=== PATIENT | male | born 1950 | race Caucasian/White ===

== ENCOUNTER 2019-01-04 11:05 | Day surgery (SDC) | payer MEDICARE ==
[~2019-01-04] VITALS: Ht 172.7 cm; Wt 80.2 kg
[2019-01-04 11:55] VITALS: BP 130/84
== END 2019-01-04 14:35 | disposition home or self-care (01) ==
LOC: OUT 11:05
PROVIDERS: ATTEND Surgery
DX: Z45.2 Encounter for adjustment and management of vascular access device (principal); C20 Malignant neoplasm of rectum; I10 Essential (primary) hypertension
CPT/HCPCS: 36415; 36561; 77001; 80053; 93005; C1788; J0690; J1100; J1644; J1885; J2250; J2405; J2704; J3010; J7120

== ENCOUNTER → 2019-07-20 | Outpatient (CLI) | payer MEDICARE ==
[~2019-07-20] MED LIST: LISI40TA PO; OMNIPAQUE 350 MG/ML, 100ML BOTTLE ONE
== END | disposition home or self-care (01) ==
LOC: CFH 10:47
PROVIDERS: ATTEND Specialist
DX: K43.5 Parastomal hernia without obstruction or gangrene (principal); R91.1 Solitary pulmonary nodule
CPT/HCPCS: 71260; 74177; 82565; Q9967

== ENCOUNTER → 2019-09-26 | Outpatient (CLI) | payer MEDICARE ==
[~2019-09-26] MED LIST changes: -OMNIPAQUE 350 MG/ML, 100ML BOTTLE ONE
== END | disposition home or self-care (01) ==
LOC: RAD 12:34
PROVIDERS: ATTEND Surgery
DX: Z93.2 Ileostomy status (principal)
CPT/HCPCS: 74270

== ENCOUNTER → 2019-12-11 | Outpatient (CLI) | payer MEDICARE ==
[2019-12-11 16:15] LABS: BASOPHILS # (AUTO) 0.04 x10^3/uL (0-0.1); BASOPHILS % (AUTO) 1 % (0-1); EOSINOPHILS # (AUTO) 0.44 x10^3/uL (0-0.4); EOSINOPHILS % (AUTO) 9 % (1-7); LYMPHOCYTES # (AUTO) 0.97 x10^3/uL (1-3.4); LYMPHOCYTES % (AUTO) 20 % (22-44); MD NO; MEAN CORPUSCULAR HEMOGLOBIN 29.6 pg (27.5-34.5); MEAN CORPUSCULAR HGB CONC 33.1 g/dL (33.2-36.2); MEAN CORPUSCULAR VOLUME 89.3 fL (81-97); MEAN PLATELET VOLUME 7.4 fL (7.4-10.4); MONOCYTES # (AUTO) 0.49 x10^3/uL (0.2-0.8); MONOCYTES % (AUTO) 10 % (2-9); NEUTROPHILS # (AUTO) 3.01 x10^3/uL (1.8-6.8); NEUTROPHILS % (AUTO) 61 % (42-75); PLATELET COUNT 226 x10^3/uL (130-400); RED BLOOD COUNT 4.99 x10^6/uL (4.38-5.82); RED CELL DISTRIBUTION WIDTH 14.4 % (9.4-14.8)
[2019-12-11 16:21] LABS: ALANINE AMINOTRANSFERASE 28 U/L (12-78); ALBUMIN 3.9 g/dL (3.4-5.0); ANION GAP 5 mmol/L (5-15); CALCIUM 8.8 mg/dL (8.5-10.1); CHLORIDE 108 mmol/L (98-107); CREATININE 1.59 mg/dL (0.7-1.3)
[2019-12-11 16:23] LABS: ALKALINE PHOSPHATASE 60 U/L (45-117); BILIRUBIN,TOTAL 0.4 mg/dL (0.2-1.0); TOTAL PROTEIN 7.2 g/dL (6.4-8.2)
== END | disposition home or self-care (01) ==
LOC: STAR 16:36
PROVIDERS: ATTEND Surgery
DX: Z01.818 Encounter for other preprocedural examination (principal)
CPT/HCPCS: 36415; 80053; 85025; 93005

== ENCOUNTER → 2019-12-15 | Outpatient (CLI) | payer MEDICARE | END | disposition home or self-care (01) | LOC: STAR 08:00 | PROVIDERS: ATTEND Surgery | DX: Z01.818 Encounter for other preprocedural examination (principal); Z11.59 Encounter for screening for other viral diseases | CPT/HCPCS: 36415; 87635 ==

== ENCOUNTER 2019-12-20 12:17 | Inpatient (IN) | payer MEDICARE ==
[~2019-12-20] VITALS: Ht 172.7 cm; Wt 85.0 kg
[2019-12-20] MEDS ORDERED: MIDAZOLAM 1 MG/ML, 2ML ONE ×2 (12:44→13:24)
[2019-12-20] MEDS ORDERED: FENTANYL PF 100 MCG/2ML ONE ×3 (12:44→15:32)
[2019-12-20] MEDS ORDERED: LACTATED RINGERS 1,000 ML IV SCH (12:56)
[2019-12-20] MEDS ORDERED: CHLORHEXIDINE 15 ML UDC MM ONE (13:00)
[2019-12-20] MEDS ORDERED: FENTANYL PF 250 MCG/5ML ONE (13:24)
[2019-12-20] MEDS ORDERED: DEXAMETHASONE 4 MG/ML, 5ML ONE (13:40)
[2019-12-20] MEDS ORDERED: NEOSTIGMINE 1 MG/ML, 10ML ONE (13:40)
[2019-12-20] MEDS ORDERED: GLYCOPYRROLATE 0.2MG/1ML, 5ML ONE (13:40)
[2019-12-20] MEDS ORDERED: ONDANSETRON 2MG/ML, 2ML ONE (13:40)
[2019-12-20] MEDS ORDERED: CEFOTETAN 2 GM ONE (13:40)
[2019-12-20] MEDS ORDERED: PROPOFOL 10 MG/ML, 20ML ONE (13:40)
[2019-12-20] MEDS ORDERED: ROCURONIUM 10 MG/ML,10ML ONE (13:40)
[2019-12-20] MEDS ORDERED: ONDANSETRON 2MG/ML, 2ML IVPush PRN (14:00)
[2019-12-20] MEDS ORDERED: hydrALAzine 20 MG/ML, 1ML IV PRN (14:00)
[2019-12-20] MEDS ORDERED: LABETALOL 5MG/ML, 20ML IV PRN (14:00)
[2019-12-20] MEDS ORDERED: MEPERIDINE/PF 25MG/0.5ML IVPush PRN (14:00)
[2019-12-20] MEDS ORDERED: HYDROmorphone 1 MG/ML, 1ML INJ IVPush PRN (14:00)
[2019-12-20] MEDS ORDERED: DIAZEPAM 5 MG/ML, 2ML IVPush PRN (14:00)
[2019-12-20] MEDS ORDERED: PROMETHAZINE 25 MG/ML, 1ML IVPush PRN (14:00)
[2019-12-20] MEDS: FENTANYL PF 100 MCG/2ML IV PRN ×4 (15:05→15:40)
[2019-12-20] MEDS ORDERED: OXYcodone 5 MG/5 ML ORAL.SOL UDC ONE ×2 (15:23→15:41)
[2019-12-20] MEDS: OXYcodone 5 MG/5 ML ORAL.SOL UDC PO PRN ×2 (15:24→15:42)
[2019-12-20] MEDS: ACETAMINOPHEN 500 MG TABLET PO SCH ×2 (17:12→23:14)
[2019-12-20] MEDS: D5%-0.45NACL+KCL 20MEQ 1,000 ML IV SCH (18:25)
[2019-12-20 19:01] VITALS: BP 112/74
[2019-12-20] MEDS: OXYcodone IR 5MG TABLET PO PRN (21:00)
[2019-12-20 23:06] VITALS: BP 115/73
[2019-12-21 03:25] VITALS: BP 124/69
[2019-12-21 03:37] LABS: BASOPHILS # (AUTO) 0.02 x10^3/uL (0-0.1); BASOPHILS % (AUTO) 0 % (0-1); EOSINOPHILS % (AUTO) 0 % (1-7); LYMPHOCYTES # (AUTO) 0.38 x10^3/uL (1-3.4); LYMPHOCYTES % (AUTO) 4 % (22-44); MD NO; MEAN CORPUSCULAR HEMOGLOBIN 29.5 pg (27.5-34.5); MEAN CORPUSCULAR HGB CONC 33.3 g/dL (33.2-36.2); MEAN PLATELET VOLUME 7.4 fL (7.4-10.4); MONOCYTES # (AUTO) 0.32 x10^3/uL (0.2-0.8); MONOCYTES % (AUTO) 3 % (2-9); NEUTROPHILS # (AUTO) 9.22 x10^3/uL (1.8-6.8); NEUTROPHILS % (AUTO) 93 % (42-75); PLATELET COUNT 204 x10^3/uL (130-400); RED BLOOD COUNT 4.96 x10^6/uL (4.38-5.82); RED CELL DISTRIBUTION WIDTH 13.9 % (9.4-14.8)
[2019-12-21 03:47] LABS: ANION GAP 6 mmol/L (5-15); CALCIUM 8.8 mg/dL (8.5-10.1); CHLORIDE 108 mmol/L (98-107)
[2019-12-21] MEDS: ACETAMINOPHEN 500 MG TABLET PO SCH ×4 (05:15→21:42)
[2019-12-21 06:25] VITALS: BP 128/76
[2019-12-21] MEDS: D5%-0.45NACL+KCL 20MEQ 1,000 ML IV SCH ×2 (06:36→20:43)
[2019-12-21] MEDS: ENOXAPARIN 40 MG/0.4 ML SQ SCH (11:44)
[2019-12-21 13:30] VITALS: BP 124/74
[2019-12-21 18:58] VITALS: BP 123/72
[2019-12-22 01:58] VITALS: BP 110/70
[2019-12-22 04:14] LABS: BASOPHILS # (AUTO) 0.02 x10^3/uL (0-0.1); BASOPHILS % (AUTO) 0 % (0-1); EOSINOPHILS % (AUTO) 1 % (1-7); LYMPHOCYTES # (AUTO) 0.62 x10^3/uL (1-3.4); LYMPHOCYTES % (AUTO) 6 % (22-44); MD NO; MEAN CORPUSCULAR HEMOGLOBIN 29.1 pg (27.5-34.5); MEAN CORPUSCULAR HGB CONC 32.4 g/dL (33.2-36.2); MEAN PLATELET VOLUME 7.8 fL (7.4-10.4); MONOCYTES # (AUTO) 0.59 x10^3/uL (0.2-0.8); MONOCYTES % (AUTO) 6 % (2-9); NEUTROPHILS % (AUTO) 87 % (42-75); PLATELET COUNT 203 x10^3/uL (130-400); RED BLOOD COUNT 4.66 x10^6/uL (4.38-5.82); RED CELL DISTRIBUTION WIDTH 14.4 % (9.4-14.8)
[2019-12-22 04:24] LABS: ANION GAP 5 mmol/L (5-15); CALCIUM 8.8 mg/dL (8.5-10.1); CHLORIDE 108 mmol/L (98-107); CREATININE 1.52 mg/dL (0.7-1.3)
[2019-12-22] MEDS: ACETAMINOPHEN 500 MG TABLET PO SCH ×2 (05:16→11:06)
[2019-12-22 06:59] VITALS: BP 161/79
[2019-12-22] MEDS: D5%-0.45NACL+KCL 20MEQ 1,000 ML IV SCH (07:18)
[2019-12-22] MEDS: ENOXAPARIN 40 MG/0.4 ML SQ SCH (11:06)
[2019-12-22] MEDS ORDERED: OXYC-302 PO (11:16)
[2019-12-22] MEDS: OXYcodone IR 5MG TABLET PO PRN (11:55)
[2019-12-22 12:29] VITALS: BP 151/82
[2020-01-18] MEDS ORDERED: ONDA4TAB13 SL (11:29)
== END 2019-12-23 10:22 | disposition home or self-care (01) | DRG 331 ==
LOC: ORIP 12:17 → 4NE 16:34 → DCLOUNGE 12-22 13:44
PROVIDERS: ADMIT Surgery; ATTEND Surgery
PROC: 0JPT0WZ Removal of Totally Implantable Vascular Access Device from Trunk Subcutaneous Tissue and Fascia, Open Approach (ICD-10-PCS; 2019-12-20)
PROC: 0DSB0ZZ Reposition Ileum, Open Approach (ICD-10-PCS; 2019-12-20)
PROC: 0DBB0ZZ Excision of Ileum, Open Approach (ICD-10-PCS; principal; 2019-12-20 14:00)
DX: Z43.2 Encounter for attention to ileostomy (principal); Z45.2 Encounter for adjustment and management of vascular access device; Z85.048 Personal history of other malignant neoplasm of rectum, rectosigmoid junction, and anus
CPT/HCPCS: 36415; 80048; 85025; 86850; 86900; 87635; 88304; G0378; J1100; J1650; J2250; J2405; J2704; J2710; J3010; J3480; J3490; J7120

== ENCOUNTER → 2020-01-29 | Outpatient (CLI) | payer MEDICARE ==
[~2020-01-29] MED LIST changes: +OMNIPAQUE 350 MG/ML, 100ML BOTTLE ONE; +ONDA4TAB13 SL; +OXYC-302 PO
== END | disposition home or self-care (01) ==
LOC: RAD 16:28
PROVIDERS: ATTEND Surgery
DX: K76.0 Fatty (change of) liver, not elsewhere classified (principal); N28.1 Cyst of kidney, acquired; J98.11 Atelectasis; I25.10 Atherosclerotic heart disease of native coronary artery without angina pectoris; M16.0 Bilateral primary osteoarthritis of hip
CPT/HCPCS: 74177; Q9967

== ENCOUNTER → 2020-03-22 | Outpatient (CLI) | payer MEDICARE ==
[~2020-03-22] MED LIST changes: +BISA10SU4 PR; +CEFA2FRO IV; +HEPA50002 SQ; +METO5SOL PO; -OMNIPAQUE 350 MG/ML, 100ML BOTTLE ONE; +POLY17PO5 PO
== END | disposition home or self-care (01) ==
LOC: RAD 07:42
PROVIDERS: ATTEND Surgery
DX: K56.609 Unspecified intestinal obstruction, unspecified as to partial versus complete obstruction (principal)
CPT/HCPCS: 74250

== ENCOUNTER → 2020-11-05 | Outpatient (CLI) | payer MEDICARE ==
[~2020-11-05] MED LIST changes: -LISI40TA PO; +LISI40TA9 PO; -OXYC-302 PO; +OXYC1TAB14 PO
== END | disposition home or self-care (01) ==
LOC: RAD 15:33
PROVIDERS: ATTEND Nurse Practitioner
DX: R14.0 Abdominal distension (gaseous) (principal)
CPT/HCPCS: 76700

== ENCOUNTER → 2020-12-18 | Outpatient (CLI) | payer MEDICARE ==
[~2020-12-18] MED LIST changes: +OMNIPAQUE 350 MG/ML, 100ML BOTTLE ONE
== END | disposition home or self-care (01) ==
LOC: CFH 09:23
PROVIDERS: ATTEND Surgery
DX: K43.9 Ventral hernia without obstruction or gangrene (principal); K43.2 Incisional hernia without obstruction or gangrene
CPT/HCPCS: 74177; 82565; Q9967